=== PATIENT | female | born 1995 | race Two or more races ===

== ENCOUNTER 2018-11-28 22:53 | Emergency (ER) | payer SELFPAY ==
[~2018-11-28] VITALS: Ht 157.5 cm; Wt 93.1 kg
--- NOTE | 2018-11-28 23:13 | NUR ---
Pt to room with EDT.
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
--- NOTE | 2018-11-28 23:29 | NUR ---
Pt back to room from imaging.
--- NOTE | 2018-11-29 00:15 | NUR ---
Radiology called regarding long wait on CT read. clinical pharmacy technician states that he will look into it.
--- NOTE | 2018-11-29 00:34 | NUR ---
Radiology called regarding long wait time for results. digital technician states that [facility] is reading this CT scan now and she will be down to get pt for additional rad tests as soon as she sees the reading is complete.
--- NOTE | 2018-11-29 00:46 | NUR ---
CT neck read is negative. C-collar removed by this RN.
--- NOTE | 2018-11-29 00:48 | NUR ---
Pt to imaging, with tech, via gukatty.
--- NOTE | 2018-11-29 01:07 | NUR ---
Pt back to room from imaging.
--- NOTE | 2018-11-29 01:55 | NUR ---
Pt resting on edd pt without complaint/concern for RN at this time. Pt aware that we are waiting for XR results.
[2018-11-29 02:06] VITALS: BP 143/95
--- NOTE | 2018-11-29 02:39 | NUR ---
Dr. Smith at bedside to discuss ED findings and d/c information. Pt given discharge instructions and she has confirmed that she understands the instructions. Pt ambulatory with steady gait.
== END 2018-11-29 02:44 | disposition home or self-care (01) ==
LOC: ED 23:59
DX: S16.1XXA Strain of muscle, fascia and tendon at neck level, initial encounter (principal); S33.5XXA Sprain of ligaments of lumbar spine, initial encounter; Z87.891 Personal history of nicotine dependence; V49.09XA Driver injured in collision with other motor vehicles in nontraffic accident, initial encounter; Y93.89 Activity, other specified; Y92.89 Other specified places as the place of occurrence of the external cause; Y99.8 Other external cause status
CPT/HCPCS: 72110; 72125; 99284